=== PATIENT | female | born 1985 | race Caucasian/White ===

== ENCOUNTER 2017-12-24 06:24 | Emergency (ER) | payer BC ==
[~2017-12-24] VITALS: Ht 160 cm; Wt 83.3 kg
[~2017-12-24 06:24] MED LIST: BCP; DOXYCYCLINE HY100 M1; FLEXERIL10 MG PO; MOTRIN800 MG PO; NAPROSYN500 MG PO; NAPROXEN500 MG PO; ORTHO TRI-CYCL1 EACH PO; ULTRAM50 MG PO; VALIUM2 MG PO; ZANAFLEX4 M1 PO
[2017-12-24] MEDS ORDERED: FIORICET 50-301 EAC1 PO (09:46)
[2017-12-24 10:00] VITALS: BP 137/86
== END 2017-12-24 10:00 | disposition home or self-care (01) ==
LOC: EME 06:24
DX: G43.909 Migraine, unspecified, not intractable, without status migrainosus (principal)
CPT/HCPCS: 99281; 99285; J1885; J2765; J7030